=== PATIENT | female | born 1985 | race Caucasian/White ===

== ENCOUNTER 2021-10-22 05:35 | Outpatient (RCR) | payer BC ==
[~2021-10-22] VITALS: Ht 170.2 cm; Wt 90.8 kg
[2021-10-22] MEDS ORDERED: LISD40CA3 PO (13:21)
[2021-10-22] MEDS ORDERED: CITA40TA19 PO (13:21)
[2021-10-22] MEDS ORDERED: LEVO125C4 PO (13:21)
== END 2021-10-26 | disposition home or self-care (01) ==
LOC: PREOP 05:35 → EDSTATUS 12:00 → PREOP 10-26 12:49
PROVIDERS: ATTEND Otolaryngology Otolaryngology/Facial Plastic Surgery
DX: Z01.818 Encounter for other preprocedural examination (principal)

== ENCOUNTER 2021-10-29 06:44 | Day surgery (SDC) | payer BC ==
[2021-10-29] VITALS (11 sets, daily range): BP systolic 100–121; BP diastolic 66–84
[~2021-10-29] VITALS: Ht 170 cm; Wt 90.8 kg
[~2021-10-29 06:44] MED LIST: CITA40TA19 PO; LEVO125C4 PO; LISD40CA3 PO
[2021-10-29] MEDS ORDERED: HYDROCORTISONE 100 MG/2 ML (Solu-CORTEF) VIAL IV ONE (07:00)
[2021-10-29] MEDS ORDERED: AMPICILLIN/SULBACTAM INJECTION 1.5 GM in NS (IVPB) 100 ML IV ONE (07:00)
[2021-10-29] MEDS: LACTATED RINGERS 1,000 ML IV PRN ×2 (07:31→09:47)
[2021-10-29] MEDS ORDERED: MIDAZOLAM 2 MG/2 ML (VERSED) VIAL IVP ONE (08:15)
[2021-10-29] MEDS ORDERED: MIDAZOLAM 2 MG/2 ML (VERSED) VIAL ONE ×2 (08:16→08:45)
[2021-10-29] MEDS ORDERED: BSS 15 ML ONE (08:25)
[2021-10-29] MEDS ORDERED: COCAINE HCL 4% 2 ML SYR ONE (08:25)
[2021-10-29] MEDS ORDERED: LIDOCAINE/EPI 1%-1:200,000 (XYLOCAINE) 30 ML VIAL ONE (08:25)
[2021-10-29] MEDS ORDERED: PHENYLEPHRINE 0.5% NASAL SPR (NEO-SYNEPHRINE) REG ONE (08:25)
[2021-10-29] MEDS ORDERED: fentaNYL INJ 100 MCG/2 ML AMP ONE (08:45)
[2021-10-29] MEDS ORDERED: proPOfol 200 MG/20 ML (DIPRIVAN) VIAL IV ONE (08:46)
[2021-10-29] MEDS ORDERED: ROCURONIUM 10 MG/ML 5 ML SYRINGE IV ONE (08:46)
[2021-10-29] MEDS ORDERED: ONDANSETRON 4 MG/2 ML (SDV) Z0FRAN ONE (08:46)
[2021-10-29] MEDS ORDERED: LIDOCAINE PF 2% 5 ML (XYLOCAINE) VIAL ONE (08:46)
--- NOTE | 2021-10-29 09:00 | Progress Note-Pre Operative ---
Pre-Operative Progress Note H&P Reviewed The H&P was reviewed, patient examined and no changes noted. Date Seen by Provider: Oct 29, 2021 Time Seen by Provider: 09:00 Date H&P Reviewed: Oct 29, 2021 Time H&P Reviewed: 09:00 Pre-Operative Diagnosis: Chronic Right Sinus disease, Deviatd septum, Hyper of right inf turb YARITZA WERNER MD Oct 29, 2021 09:00
--- NOTE | 2021-10-29 09:01 | Progress Note-Post Operative ---
Post-Operative Progess Note Surgeon (s)/Director Of Broadcast (s) Surgeon YARITZA WERNER MD Director Of Broadcast n/a Pre-Operative Diagnosis Chronic Right Sinus disease, Deviatd septum, Hyper of right inf turb Post-Operative Diagnosis same Post-Op Procedure Note Date of Procedure: Oct 29, 2021 Name of Procedure Performed: Right ESs, Nasal Septoplasty, Right PArtial Reduction of the INf Turb Description & Findings Description and Findings: n/a Anesthesia Type get Estimated Blood Loss minimal Packing none. Specimen(s) collected/removed right chornic sainus disease, Aerobic and anaerobic cultures form right maxillary sinus YARITZA WERNER MD Oct 29, 2021 09:01
[2021-10-29] MEDS ORDERED: predniSONE 20 MG TAB PO ONE (09:15)
[2021-10-29] MEDS ORDERED: HYDROcodone/APAP 5 MG/325 MG (LORTAB) TAB PO PRN (09:15)
[2021-10-29] MEDS ORDERED: GLYCOPYRROLATE 0.2 MG/ML (ROBINUL) 2 ML VIAL ONE (09:15)
[2021-10-29] MEDS ORDERED: D5 1/2 NS W/KCL 20 MEQ/L 1,000 ML IV SCH (09:15)
[2021-10-29] MEDS ORDERED: PROMETHAZINE INJ 25 MG/ML (PHENERGAN) AMP IVP PRN (09:15)
[2021-10-29] MEDS ORDERED: ONDANSETRON 4 MG/2 ML (SDV) Z0FRAN IVP PRN (10:30)
[2021-10-29] MEDS ORDERED: MEPERIDINE (DEMEROL) INJ 50 MG/ML IVP ONE (10:30)
[2021-10-29] MEDS ORDERED: PROMETHAZINE INJ 25 MG/ML (PHENERGAN) AMP IVP ONE (10:30)
[2021-10-29] MEDS ORDERED: morphine INJ 10 MG/ML 1ML (SYR OR VIAL) IVP ONE (10:30)
--- NOTE | 2021-10-29 10:31 | Anesthesia-General Post-Op ---
General Patient Condition Mental Status/LOC: Same as Preop Cardiovascular: Satisfactory Nausea/Vomiting: Absent Respiratory: Satisfactory Pain: Controlled Complications: Absent Post Op Complications Complications None Follow Up Care/Instructions Patient Instructions None needed. Anesthesia/Patient Condition Patient Condition Patient is doing well, no complaints, stable vital signs, no apparent adverse anesthesia problems. No complications reported per nursing. JAMAL GARCIA CRNA Oct 29, 2021 10:31
[2021-10-29] MEDS ORDERED: SEVOFLURANE (ULTANE) 15 ML INHAL SOLN ONE (10:32)
[2021-10-29] MEDS ORDERED: PHENYLEPHRINE 100 MCG/ML 10 ML (ANESTHESIA) SYR ONE (10:33)
[2021-10-29] MEDS ORDERED: morphine INJ 10 MG/ML 1ML (SYR OR VIAL) ONE (10:36)
[2021-10-29] MEDS ORDERED: LEVO500T81 PO (11:18)
[2021-10-29] MEDS ORDERED: PRD20T PO (11:18)
[2021-10-29] MEDS ORDERED: ACHD5005 PO (11:18)
== END 2021-10-29 12:50 | disposition home or self-care (01) ==
LOC: SDC 06:44
PROVIDERS: ATTEND Otolaryngology Otolaryngology/Facial Plastic Surgery
DX: J32.9 Chronic sinusitis, unspecified (principal); J34.2 Deviated nasal septum; J34.3 Hypertrophy of nasal turbinates; J34.89 Other specified disorders of nose and nasal sinuses; R09.81 Nasal congestion; K08.89 Other specified disorders of teeth and supporting structures; R09.82 Postnasal drip; Z86.16 Personal history of COVID-19; Z79.899 Other long term (current) drug therapy
CPT/HCPCS: 84703; 87070; 87075; 87076; 87077; 87081; 87101; 87185; 87205